=== PATIENT | female | born 1965 | race Caucasian/White ===

== ENCOUNTER 2017-04-11 13:29 | Emergency (ER) | payer SELFPAY ==
[2017-04-11] MEDS ORDERED: NS 0.9% 1000 ML* 1,000 ML IV ONE (14:42)
[2017-04-11] MEDS ORDERED: Morphine INJ* 4 MG/ML 1 ML CARPUJECT IV ONE ×2 (14:42→16:57)
[2017-04-11] MEDS ORDERED: Metoclopramide IV* 5 MG/ML 2 ML VIAL IV SLOW PU ONE (14:47)
[2017-04-11 14:57] LABS: Hematocrit 40 % (35-47); Hemoglobin 13.6 g/dl (12.0-16.0); Mean Corpuscular HGB Conc 34 g/dl (31-36); Mean Corpuscular Hemoglobin 29 pg (27-31); Mean Corpuscular Volume 87 fL (80-97); Mean Platelet Volume 8 um3 (7.4-10.4); Red Blood Count 4.64 10^6/ul (4.0-5.4); Red Cell Distribution Width 14 % (10.5-15); White Blood Count 5.2 10^3/ul (3.5-10.8)
[2017-04-11 15:13] LABS: ALT 27 U/L (7-52); AST 24 U/L (13-39); Albumin 4.6 g/dL (3.2-5.2); Alkaline Phosphatase 70 U/L (34-104); BUN/Creatinine Ratio 21.1 (8-20); Blood Urea Nitrogen 15 mg/dL (6-24); CO2 Carbon Dioxide 19 mmol/L (22-32); Calcium 9.2 mg/dL (8.6-10.3); EGFR African American 112.1 (>60); EGFR Non-African American 87.1 (>60); Globulin 3.3 g/dL (2-4); Glucose 101 mg/dL (70-100); Lipase < 10 U/L (11.0-82.0); Potassium 3.8 mmol/L (3.5-5.0); Sodium 139 mmol/L (133-145); Total Protein 7.9 g/dL (6.4-8.9)
[2017-04-11 15:14] LABS: Anion Gap 8 mmol/L (2-11); Chloride 112 mmol/L (101-111)
[2017-04-11 15:23] LABS: Alcohol < 10 mg/dL (<10)
[2017-04-11] MEDS ORDERED: Iohexol 300* (CONTRAST) 10 ML SDV IV ONE (16:23)
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
[2017-04-11 18:11] LABS: Urine Bilirubin Negative (Negative); Urine Glucose Negative (Negative); Urine Nitrite Negative (Negative)
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
[2017-04-11 18:36] VITALS: BP 124/74
== END 2017-04-11 18:44 | disposition home or self-care (01) ==
LOC: ED 13:29
DX: S16.1XXA Strain of muscle, fascia and tendon at neck level, initial encounter (principal); S09.90XA Unspecified injury of head, initial encounter; M54.6 Pain in thoracic spine; V43.52XA Car driver injured in collision with other type car in traffic accident, initial encounter; Y92.9 Unspecified place or not applicable; I82.0 Budd-Chiari syndrome
CPT/HCPCS: 36415; 70450; 71260; 72125; 74177; 80053; 80320; 81003; 83605; 83690; 84702; 85025; 96360; 96374; 96375; 99283; G0480; J2270; J2765; Q9967

== ENCOUNTER 2017-06-14 11:07 | Emergency (ER) | payer BC ==
[2017-06-14 12:22] VITALS: BP 118/72
--- NOTE | 2017-06-14 12:51 | UC ---
Throat Pain/Nasal Tigre HPI - HPI Summary HPI Summary: SINUS PRESSURE HEADACHE, PAIN, ONE WEEK. - History of Current Complaint Chief Complaint: UCRespiratory Stated Complaint: SINUSES Time Seen by Provider: 06/14/17 12:29 Hx Obtained From: Patient Onset/Duration: Gradual Onset, Lasting Weeks, Still Present Severity: Moderate Pain Intensity: 6 Pain Scale Used: 0-10 Numeric Cough: Nonproductive Associated Signs & Symptoms: Positive: Sinus Discomfort, Nasal Discharge - Epiglottits Risk Factors Epiglottis Risk Factors: Negative - Allergies/Home Medications Allergies/Adverse Reactions: Allergies Allergy/AdvReac Type Severity Reaction Status Date / Time No Known Allergies Allergy Verified 06/14/17 12:18 PMH/Surg Hx/FS Hx/Imm Hx Previously Healthy: Yes - Surgical History Surgical History: Yes Surgery Procedure, Year, and Place: 4X C SECTION. APPENDECTOMY;. UMBILICAL HERNIA REPAIR;. CHIARI DECOMPRESSION. 2008. TUBES IN EARS - Family History Known Family History: Positive: Cardiac Disease Negative: Respiratory Disease - Social History Occupation: Disabled Lives: With Family Alcohol Use: Weekly Substance Use Type: None Smoking Status (MU): Never Smoked Tobacco - Immunization History Most Recent Influenza Vaccination: 2017 Review of Systems Constitutional: Negative Skin: Negative Eyes: Negative ENT: Sinus Congestion, Sinus Pain/Tenderness Respiratory: Cough Cardiovascular: Negative Gastrointestinal: Negative Genitourinary: Negative Motor: Negative Neurovascular: Negative Musculoskeletal: Negative Neurological: Negative Psychological: Negative Is Patient Immunocompromised?: No All Other Systems Reviewed And Are Negative: Yes Physical Exam Triage Information Reviewed: Yes Appearance: Well-Appearing, No Pain Distress, Well-Nourished Vital Signs: Initial Vital Signs Temp 98.5 F 06/14/17 12:19 Pulse 78 06/14/17 12:19 Resp 16 06/14/17 12:19 BP 118/72 06/14/17 12:19 Pulse Ox 100 06/14/17 12:19 Vital Signs Reviewed: Yes Eye Exam: Normal ENT: Positive: Pharynx normal, Nasal congestion, Nasal drainage, TM bulging, TM dull Dental Exam: Normal Neck exam: Normal Respiratory Exam: Other - COUGH Respiratory: Positive: Chest non-tender, Lungs clear Cardiovascular Exam: Normal Abdominal Exam: Normal Abdomen Description: Positive: Nontender, No Organomegaly Musculoskeletal Exam: Normal Musculoskeletal: Positive: Strength Intact, ROM Intact Neurological Exam: Normal Psychological Exam: Normal Skin Exam: Normal Throat Pain/Nasal Course/Dx - Differential Dx/Diagnosis Differential Diagnosis/HQI/PQRI: Sinusitis, Tonsillitis, URI Provider Diagnoses: SINUSITIS Discharge - Discharge Plan Condition: Stable Disposition: HOME Prescriptions: Amoxicillin/Clavulanate TAB* [Augmentin TAB 875*] 875 mg PO BID #20 tab Patient Education Materials: Sinusitis (ED) Referrals: Pat Shepherd MD [Primary Care Provider] -
== END 2017-06-14 12:44 | disposition home or self-care (01) ==
LOC: UCCORT 11:07
DX: J32.9 Chronic sinusitis, unspecified (principal)
CPT/HCPCS: 99212; G0463

== ENCOUNTER 2017-07-03 11:01 | Emergency (ER) | payer BC ==
--- NOTE | 2017-07-03 11:14 | UC ---
Throat Pain/Nasal Tigre HPI - HPI Summary HPI Summary: Pt presents with continued sinus symptoms. She tells me that she was seen earlier this month for similar symptoms. At that time she was rx'd Augmentin for 10 days and experienced relief of her symptoms for 2-3 days after finishing the anbx course. About 5-6 days ago her symptoms returned. She is having sinus pain/pressure/congestion and post nasal drip. She denies fever, chills, headache , SOB, chest pain, cough, ST, abdominal pain, N/V/D/C - History of Current Complaint Stated Complaint: SINUS COMPLAINT Time Seen by Provider: 07/03/17 11:14 Hx Obtained From: Patient Onset/Duration: Gradual Onset Severity: Mild - Allergies/Home Medications Allergies/Adverse Reactions: Allergies Allergy/AdvReac Type Severity Reaction Status Date / Time No Known Allergies Allergy Verified 07/03/17 11:17 PMH/Surg Hx/FS Hx/Imm Hx - Additional Past Medical History Additional PMH: Chronic Pain Arnold-Chiari malformation - Surgical History Surgical History: Yes Surgery Procedure, Year, and Place: 4X C SECTION. APPENDECTOMY;. UMBILICAL HERNIA REPAIR;. CHIARI DECOMPRESSION. 2008. TUBES IN EARS - Family History Known Family History: Positive: Cardiac Disease Negative: Respiratory Disease - Social History Lives: With Family Alcohol Use: Weekly Substance Use Type: None Smoking Status (MU): Never Smoked Tobacco - Immunization History Most Recent Influenza Vaccination: 2017 Review of Systems Constitutional: Negative Skin: Negative Eyes: Negative ENT: Nasal Discharge, Sinus Congestion, Sinus Pain/Tenderness Respiratory: Negative Cardiovascular: Negative Gastrointestinal: Negative Neurological: Negative Psychological: Negative All Other Systems Reviewed And Are Negative: Yes Physical Exam Triage Information Reviewed: Yes Appearance: Well-Appearing, No Pain Distress, Well-Nourished Vital Signs Reviewed: Yes Eyes: Positive: Conjunctiva Clear. Negative: Conjunctiva Inflamed, Discharge ENT: Positive: Hearing grossly normal, Pharynx normal, Nasal congestion, Nasal drainage, TMs normal, Sinus tenderness, Uvula midline. Negative: Pharyngeal erythema, TM bulging, TM dull, TM red, Tonsillar swelling, Tonsillar exudate, Hoarse voice Neck: Positive: Supple, Nontender, No Lymphadenopathy Respiratory: Positive: Chest non-tender, Lungs clear, Normal breath sounds, No respiratory distress, No accessory muscle use Cardiovascular: Positive: RRR, No Murmur, Pulses Normal Throat Pain/Nasal Course/Dx - Course Course Of Treatment: Sinusitis depsite Augmentin therapy. Will rx for Doxy for 7 days, discussed the likelihood that this is viral, but pt states she is worried due to her other health problems and requests an antibiotic. She is following up in [facility] in a couple of weeks for other health concerns. - Differential Dx/Diagnosis Differential Diagnosis/HQI/PQRI: Influenza, Mononucleosis, Otitis Media, Sinusitis, Tonsillitis, URI Provider Diagnoses: Sinusitis Discharge - Discharge Plan Condition: Stable Disposition: HOME Prescriptions: DOXYcycline CAP(*) [DOXYcycline 100MG CAP(*)] 100 mg PO BID #14 cap Patient Education Materials: Sinusitis (ED) Referrals: Pat Shepherd MD [Primary Care Provider] - Additional Instructions: If you develop a fever, SOB, chest pain, new or worsening symptoms - please call your PCP or go to the ED. 1) In addition to the antibiotic, please take plain Mucinex OTC twice a day as an expectorant to help relief congestion. 2) OTC Tylenol or ibuprofen for any pain or discomfort.
[2017-07-03 11:24] VITALS: BP 115/72
== END 2017-07-03 11:41 | disposition home or self-care (01) ==
LOC: UCCORT 11:01
DX: J32.9 Chronic sinusitis, unspecified (principal); Z72.89 Other problems related to lifestyle
CPT/HCPCS: 99212; G0463

== ENCOUNTER 2018-09-25 11:54 | Emergency (ER) | payer BC ==
[2018-09-25] MEDS ORDERED: NS 0.9% 1000 ML** 1,000 ML IV ONE (13:09)
[2018-09-25 13:48] LABS: ABS Basophils 0.1 10^3/ul (0-0.2); ABS Eosinophils 0 10^3/ul (0-0.6); ABS Lymphocytes 0.4 10^3/ul (1.0-4.8); ABS Monocytes 0.5 10^3/ul (0-0.8); ABS Nucleated RBC 0 10^3/ul; Eosinophil % 0 %; Hematocrit 40 % (33-41); Hemoglobin 13.8 g/dL (12.0-16.0); Lymphocyte % 5.8 %; Mean Corpuscular HGB Conc 34 g/dL (31-36); Mean Corpuscular Hemoglobin 29 pg (27-31); Mean Corpuscular Volume 85 fL (80-97); Mean Platelet Volume 7.8 fL (7.4-10.4); Nucleated Red Blood Cells % 0.3; Platelet Count 264 10^3/uL (150-450); Red Blood Count 4.73 10^6 /uL (3.70-4.87); Red Cell Distribution Width 13 % (10.5-15)
[2018-09-25 14:02] LABS: BUN/Creatinine Ratio 18.6 (8-20); C Reactive Protein 16.5 mg/L (<8.01); Calcium 9.4 mg/dL (8.6-10.3); EGFR African American 106.3 (>60); EGFR Non-African American 87.9 (>60); Potassium 3.8 mmol/L (3.5-5.0)
[2018-09-25] MEDS ORDERED: Morphine 10 MG/ML VIAL (1 ml) IV ONE (14:25)
[2018-09-25] MEDS ORDERED: Acetaminophen TAB* 325 MG PO ONE (14:27)
[2018-09-25] MEDS ORDERED: PROCHLORPERAZINE INJ 5 MG/ML 2 ML VIAL IV ONE (14:41)
[2018-09-25 15:00] LABS: Influenza A Molecular POSITIVE (Negative)
[2018-09-25 16:29] VITALS: BP 106/62
--- NOTE | 2018-09-29 14:46 | ED ---
Headache - HPI Summary HPI Summary: Pt. is a 53 y.o female who presents to the ER for h/a that started last night. Pt. has a hx of chiari malformation and had a GARBAGE COLLECTOR shunt placed about a year ago. Pt. follows with a local neurologist. Family states that pt. typically gets h/a but not to this severity. Pt. also has have a fever today. She notes being treated for a sinus infection last month and sxs resolved. Pt. otherwise denies neck pain, neuro deficits, abd. pain. No other past medical hx. Pt. and family concerned there may be an issue with GARBAGE COLLECTOR shunt. No current modifying factors. - History Of Current Complaint Chief Complaint: EDHeadache Stated Complaint: HEADACHE, FEVER PER PT Time Seen by Provider: 09/25/18 14:16 Hx Obtained From: Patient - Allergies/Home Medications Allergies/Adverse Reactions: Allergies Allergy/AdvReac Type Severity Reaction Status Date / Time ondansetron [From Zofran] Allergy Headache Verified 09/25/18 12:02 Home Medications: Home Medications Aspirin/Acetaminophen/Caffeine [Excedrin Migraine Caplet] 1 - 2 tab PO DAILY PRN 09/25/18 [History Confirmed 09/25/18] Pregabalin [Lyrica] 100 mg PO BID 09/25/18 [History Confirmed 09/25/18] PMH/Surg Hx/FS Hx/Imm Hx Previously Healthy: Yes Endocrine/Hematology History: Denies: Hx Diabetes, Hx Thyroid Disease Cardiovascular History: Denies: Hx Hypertension, Hx Pacemaker/ICD Respiratory History: Denies: Hx Asthma, Hx Chronic Obstructive Pulmonary Disease (COPD) GI History: Reports: Other GI Disorders - umbilical hernia repair Denies: Hx Ulcer History: Denies: Hx Renal Disease Musculoskeletal History: Reports: Hx Back Problems, Other Musculoskeletal History - Hx spinal herniation Sensory History: Denies: Hx Hearing Aid Neurological History: Reports: Hx Migraine, Hx Seizures, Other Neuro Impairments /Disorders - chiari malformation Psychiatric History: Denies: Hx Panic Disorder - Surgical History Surgery Procedure, Year, and Place: 4X C SECTION. APPENDECTOMY;. UMBILICAL HERNIA REPAIR;. CHIARI DECOMPRESSION. 2008. TUBES IN EARS. GARBAGE COLLECTOR SHUNT Infectious Disease History: No Infectious Disease History: Denies: Hx Hepatitis, Hx Human Immunodeficiency Virus (HIV), Traveled Outside the [place] in Last 30 Days - Family History Known Family History: Positive: Cardiac Disease Negative: Respiratory Disease - Social History Occupation: Employed Full-time Lives: With Family Alcohol Use: Weekly Hx Substance Use: No Substance Use Type: Reports: None Hx Tobacco Use: No Smoking Status (MU): Never Smoked Tobacco Review of Systems Positive: Fever, Chills Positive: Photophobia ENT: Negative Cardiovascular: Negative Respiratory: Negative Positive: Nausea. Negative: Abdominal Pain, Vomiting Genitourinary: Negative Musculoskeletal: Negative Skin: Negative Positive: Headache. Negative: Weakness, Paresthesia, Numbness All Other Systems Reviewed And Are Negative: Yes Physical Exam Triage Information Reviewed: Yes Vital Signs On Initial Exam: Initial Vitals Temp Pulse Resp BP Pulse Ox 100.1 F 96 19 134/85 98 09/25/18 11:56 09/25/18 11:56 09/25/18 11:56 09/25/18 11:56 09/25/18 11:56 Vital Signs Reviewed: Yes Appearance: Positive: Pain Distress - Pt. lying in room with shirt over eyes, appears in pain but nontoxic. Family member present. Skin: Positive: Warm, Dry Head/Face: Positive: Normal Head/Face Inspection Eyes: Positive: Normal, EOMI, HAM, Conjunctiva Clear Neck: Positive: Supple. Negative: Nuchal Rigidity Respiratory/Lung Sounds: Positive: Clear to Auscultation, Breath Sounds Present Cardiovascular: Positive: Normal Musculoskeletal: Positive: Normal, Strength/ROM Intact Neurological: Positive: Normal, Alert, Oriented to Person Place, Time, CN Intact II-III Psychiatric: Positive: Affect/Mood Appropriate - Yelena Coma Scale Best Eye Response: 4 - Spontaneous Best Motor Response: 6 - Obeys Commands Best Verbal Response: 5 - Oriented Coma Scale Total: 15 Diagnostics - Vital Signs Vital Signs Temp Pulse Resp BP Pulse Ox 09/25/18 16:28 98.3 F 78 17 106/62 92 09/25/18 15:00 87 95 09/25/18 14:59 86 93 09/25/18 14:33 20 09/25/18 13:59 101 F 105 22 116/74 97 09/25/18 11:56 100.1 F 96 19 134/85 98 - Laboratory Lab Results: Lab Results 09/25/18 09/25/18 09/25/18 Range/Units 13:36 13:36 14:55 WBC 7.0 (3.5-10.8) 10^3/uL RBC 4.73 (3.70-4.87) 10^6 /uL Hgb 13.8 (12.0-16.0) g/dL Hct 40 (33-41) % MCV 85 (80-97) fL MCH 29 (27-31) pg MCHC 34 (31-36) g/dL RDW 13 (10.5-15) % Plt Count 264 (150-450) 10^3/uL MPV 7.8 (7.4-10.4) fL Neut % (Auto) 86.1 % Lymph % (Auto) 5.8 % [place] % (Auto) 7.2 % Eos % (Auto) 0 % Baso % (Auto) 0.9 % Absolute Neuts (auto) 6.0 (1.5-7.7) 10^3/ul Absolute Lymphs (auto) 0.4 L (1.0-4.8) 10^3/ul Absolute Monos (auto) 0.5 (0-0.8) 10^3/ul Absolute Eos (auto) 0 (0-0.6) 10^3/ul Absolute Basos (auto) 0.1 (0-0.2) 10^3/ul Absolute Nucleated RBC 0 10^3/ul Nucleated RBC % 0.3 Sodium 136 (135-145) mmol/L Potassium 3.8 (3.5-5.0) mmol/L Chloride 105 (101-111) mmol/L Carbon Dioxide 24 (22-32) mmol/L Anion Gap 7 (2-11) mmol/L BUN 13 (6-24) mg/dL Creatinine 0.70 (0.51-0.95) mg/dL Est GFR ( Amer) 106.3 (>60) Est GFR (Non-Af Amer) 87.9 (>60) BUN/Creatinine Ratio 18.6 (8-20) Glucose 142 H (70-100) mg/dL Calcium 9.4 (8.6-10.3) mg/dL C-Reactive Protein 16.50 H (<8.01) mg/L Influenza A (Rapid) Positive A (Negative) Result Diagrams: 09/25/18 13:36 09/25/18 13:36 Lab Statement: Any lab studies that have been ordered have been reviewed, and results considered in the medical decision making process. Headache Course/Dx - Course Course Of Treatment: Pt. presenting for worsening h/a and fever since yesterday. Temp 101F, VS stable. Pt. without neuro deficits. Labs obtained in waiting room are unremarkable. + influenza A. Brain CT shows signs of sinusitis but is otherwise negative for acute findings, per radiology. Pt. treated with Compazine, morphine, Tylenol and fluids. On re-exam pt. is much more comfortably and h/a is improving. Suspect her sxs are secondary to influenza. Pt. comfortably with dc home. She would like to be treated with Tamiflu. Advised to increase fluids and rest. Tyelnol or motrin for pain as directed. Close f.u with PCP and neurologist. Will return to ER if sxs change or worsen. - Diagnoses Differential Diagnosis/HQI/PQRI: Migraine, Subarachnoid Hemorrhage, Viral Syndrome Provider Diagnoses: Headache, Influenza Discharge - Sign-Out/Discharge Documenting (check all that apply): Patient Departure Patient Received Moderate/Deep Sedation with Procedure: No - Discharge Plan Condition: Improved Disposition: HOME Prescriptions: Oseltamivir CAP* [Tamiflu CAP*] 75 mg PO BID #10 cap Patient Education Materials: Influenza (ED) Referrals: Pat Shepherd MD [Primary Care Provider] - Additional Instructions: Schedule a follow up appointment with PCP and neurologist Tylenol or Motrin for pain as directed Increase fluids and rest Tamiflu as directed Return to ER if symptoms change or worsen - Billing Disposition and Condition Condition: IMPROVED Disposition: Home
== END 2018-09-25 16:28 | disposition home or self-care (01) ==
LOC: ED 11:54
DX: R51 Headache (principal); J10.1 Influenza due to other identified influenza virus with other respiratory manifestations; Z98.2 Presence of cerebrospinal fluid drainage device; Z88.8 Allergy status to other drugs, medicaments and biological substances
CPT/HCPCS: 36415; 70450; 80048; 85025; 86140; 96374; 96375; 99283; A9270-GY; J0780; J2270